=== PATIENT | male | born 1950 | race Caucasian/White ===

== ENCOUNTER → 2016-04-05 | Outpatient (CLI) | payer OTHER | END | disposition home or self-care (01) | LOC: C.LABMFLN 08:21 | PROVIDERS: ATTEND Family Medicine | DX: Z12.5 Encounter for screening for malignant neoplasm of prostate (principal) ==

== ENCOUNTER → 2016-09-10 | Outpatient (CLI) | payer OTHER ==
[2016-09-10 18:18] LABS: BLOOD UREA NITROGEN 14 mg/dl (7-18); CALCIUM 8.3 mg/dl (8.5-10.1); CARBON DIOXIDE 30 mmol/L (21-32); CHLORIDE 110 mmol/L (98-107); CREATININE 0.74 mg/dl (0.60-1.40); GLUCOSE 100 mg/dl (70-99); POTASSIUM 3.9 mmol/L (3.5-5.1); SODIUM 143 mmol/L (136-145)
== END | disposition home or self-care (01) ==
LOC: C.LABMFLN 12:05
PROVIDERS: ATTEND Internal Medicine Cardiovascular Disease
DX: R60.9 Edema, unspecified (principal)

== ENCOUNTER 2018-06-24 12:58 | Inpatient (IN) ==
[2018-06-24] MEDS ORDERED: SODIUM CHLORIDE 0.9% 1000ML 1,000 ML IV ONE (13:51)
[2018-06-24 14:00] LABS: Basophils # (auto) 0.01 K/uL (0-0.2); Basophils % (auto) 0.2 %; Eosinophils # (auto) 0.07 K/uL (0-0.5); Eosinophils % (auto) 1.1 %; Hematocrit (blood only) 38.9 % (42-52); Hemoglobin 12.8 g/dL (14.0-18.0); Immature Granulocytes # (auto) 0.01 K/uL (0.00-0.02); Immature Granulocytes % (auto) 0.2 %; Lymphocytes % (auto) 18.9 %; Mean Corpuscular Hgb Conc 32.9 g/dL (32-36); Mean Corpuscular Volume 85.9 fL (80-100); Mean Platelet Volume 10.2 fL (7.4-10.4); Monocytes # (auto) 0.41 K/uL (0.11-0.59); Monocytes % (auto) 6.4 %; Neutrophils # (auto) 4.66 K/uL (1.4-6.5); Neutrophils % (auto) 73.2 %; Platelet Count 132 K/uL (130-400); RDW Coefficient of Variation 14.9 % (11.5-14.5); Red Blood Count 4.53 M/uL (4.7-6.1); White Blood Count 6.36 K/uL (4.8-10.8)
--- NOTE | 2018-06-24 14:00 | Emergency Department Note ---
ED Visit Note I took a history and examined the patient. I coordinated management with Dr. Tyson .
--- NOTE | 2018-06-24 14:08 | XRay Report ---
XR chest 1V portable CLINICAL HISTORY: Chest Pain dyspnea COMPARISON STUDY: No previous studies for comparison. FINDINGS: The bones soft tissues and hemidiaphragms are normal. The cardiomediastinal silhouette is n ormal. The lungs are clear. The pulmonary vasculature is normal. IMPRESSION: Negative chest. The above report was generated using voice recognition software. It may contain grammatical, syntax or spelling errors. Electronically signed by: Bharat Stokes M.D. 06/24/2018 2:07 PM
[2018-06-24 14:17] LABS: Alanine Aminotransferase 53 U/L (12-78); Albumin Level 3.4 gm/dl (3.4-5.0); Aspartate Aminotransferase 42 U/L (15-37); BUN Creatinine Ratio 22.3 (10-20); Blood Urea Nitrogen 19 mg/dl (7-18); Calcium 8.5 mg/dl (8.5-10.1); Carbon Dioxide 27 mmol/L (21-32); Chloride 108 mmol/L (98-107); Est GFR (African American) 104.7; Est GFR (Non-African American) 90.4; Glucose 92 mg/dl (70-99); Potassium 4.1 mmol/L (3.5-5.1); Sodium 140 mmol/L (136-145)
[2018-06-24 14:22] LABS: Albumin Globulin Ratio 1.2 (0.9-2); Alkaline Phosphatase 82 U/L (45-117); Bilirubin,Total 0.6 mg/dl (0.2-1); Globulin 2.9 gm/dl (2.5-4.0); Phosphorus 2.8 mg/dl (2.5-4.9); Total Protein 6.3 gm/dl (6.4-8.2); Troponin I < 0.015 ng/ml (0-0.045)
--- NOTE | 2018-06-24 16:16 | History & Physical Report ---
Date of Service June 24, 2018 Assessment & Plan (1) Unstable angina: -Admit to telemetry -Hold Eliquis and start on heparin drip as per my discussion with his primary artist manager, Dr. Martins in case of need for cardiac catheterization -Continue aspirin, statin, metoprolol -Nitroglycerin as needed for pain -N.p.o. after midnight -Serial troponin -No need to repeat echocardiogram at this time as he had one done as an outpatient yesterday-will await cardiology to read the outpatient study -Daily ECG and check ECG PRN chest pain -Consult cardiology (2) KISER (dyspnea on exertion): Likely associated with his unstable angina, could also be rapid atrial fibrillation that is worsened with exertion -Follow on telemetry -Not hypoxic here Chest x-ray within normal limits (3) CAD (coronary artery disease): Status post WI with 100% occluded RCA in 01/2010 with one stent placed- went for repeat cath 2 days later during that same admission for dissection of the RCA and had 3 more stents placed at that time -Recently was discontinued from his Effient when he was started on Eliquis last week for atrial fibrillation -Continue aspirin, high intensity statin, metoprolol (4) A-fib: New in onset as of 1 week ago, rate controlled at rest here with increased dose of metoprolol to 100 mg p.o. twice daily last week -Monitor on telemetry -Holding Eliquis and starting heparin drip as above for unstable angina -Continue p.o. Toprol-XL 100 mg twice daily (5) HTN (hypertension), benign: Controlled -Continue metoprolol, losartan, Lasix (6) Chronic systolic CHF (congestive heart failure): LVEF 40-45% and imaging of the heart 2 years ago Had some lower extremity edema 1 month ago along with weight gain that resolved with an increase in his Lasix dose when seen by cardiology -Continue Lasix 40 mg daily -Continue losartan, metoprolol -Daily weights, I's and O's, low-sodium diet (7) Ischemic cardiomyopathy: As above and "CHF" (8) Hypothyroidism: TSH normal at 2.5 in 12/2017 -Continue home dose of levothyroxine 125 mcg once daily (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 Was treated with 6 months of Coumadin at that time and has had no recurrence (10) Hyperlipidemia: Continue statin (11) DVT prophylaxis: Heparin drip Disposition-admit to PCU/telemetry Full code History of Present Illness Chief Complaint: Chest pain Primary Care Provider: Chhaya Yanez MD This patient is a 68-year-old male with a history of CAD status post WI with PCI x4 to the RCA in 01/2010, ischemic cardiomyopathy and chronic systolic CHF with EF 40-45%, HTN, hypothyroidism, HL, obesity, Hodgkin's lymphoma status post XRT, history of left internal jugular brachial DVT, and recent diagnosis of atrial fibrillation 1 week ago. He presents to the ER with exertional chest pressure that is 3 out of 10 in severity, radiates to the bilateral shoulders, is associated with shortness of breath, but not with diaphoresis or nausea. The chest pressure does go away with rest. This is been going on for the last 3 days. He denies any recent weight gain or lower extremity edema since he doubled up on his diuretics a month ago and had resolution of his lower extremity edema. He was seen in the cardiology office approximately 1 week ago with dyspnea and was found to have new onset atrial fibrillation with rates in the low 100s. At that time, his Toprol-XL was doubled to 100 mg twice daily and he was started on Eliquis 5 mg p.o. twice daily. He was not having any chest pain or pressure at that time. In the ER, his initial troponin was negative, he was in atrial fibrillation that was rate controlled, and his ECG showed atrial fibrillation with a rate of 96 with age-indeterminate inferior infarct. Previous ECG in the outpatient chart from 12/2016 also shows an inferior infarct pattern. He was symptom-free at rest at the time of my evaluation. He actually had an echocardiogram performed as an outpatient yesterday, but the results were not available yet in his outpatient record. He will be admitted for unstable angina and for further work-up. Allergies Allergy/AdvReac Type Severity Reaction Status Date / Time No Known Allergies Allergy Unverified 06/24/18 14:27 Home Medications Home Medications Medication Instructions Recorded Confirmed Type acetaminophen 1,000 mg PO Q8H PRN 06/24/18 06/24/18 History apixaban [Eliquis] 5 mg PO BID 06/24/18 06/24/18 History aspirin [Aspirin Low Dose] 81 mg PO DAILY 06/24/18 06/24/18 History atorvastatin 40 mg PO HS 06/24/18 06/24/18 History furosemide 40 mg PO DAILY 06/24/18 06/24/18 History levothyroxine 125 mcg PO DAILY 06/24/18 06/24/18 History losartan 25 mg PO DAILY 06/24/18 06/24/18 History metoprolol succinate 100 mg PO BID 06/24/18 06/24/18 History multivitamin 1 tab PO DAILY 06/24/18 06/24/18 History nitroglycerin 0.4 mg SUBLINGUAL DIRECTED 06/24/18 06/24/18 History Past Med/Surg History Medical History CAD (coronary artery disease) A-fib Myocardial infarction Degenerative joint disease of right hip Chronic systolic CHF (congestive heart failure) HTN (hypertension), benign History of Hodgkin's lymphoma History of internal jugular thrombosis Hyperlipidemia Hypothyroidism Ischemic cardiomyopathy Surgical History Hx of heart artery stent History of foot surgery History of lymph node biopsy History of nasal surgery History of total right hip arthroplasty Family History Mother Diabetes Coronary heart disease Sister Mitral valve prolapse Father Coronary heart disease Social History Preferred Language: Japanese Communication Ability: Effective Visual Impairment: No Limitations Hearing Ability: Normal Associate Producer Required: No Beliefs That Will Affect Care: Amish Amish Beliefs: Moravian marital status: marital status details: Current Living Situation: Spouse and Family current occupational status: retired 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 Other Information That Helps Us Care for You: No Feels Safe at Home: Yes Safety Concerns: Feels Safe At This Time Smoking Status: Never smoker Do You Dip or Chew Tobacco: No Hx Alcohol Use: Yes Alcohol type: wine Hx Substance Use: No Review of Systems Review of Systems: All systems reviewed & are unremarkable except as noted in HPI & below Physical Exam Constitutional: WD/WN, vitals as above Eyes: PERRL, conjunctivae normal, anicteric sclerae ENMT: external ear and nose normal, oropharynx normal Neck: trachea midline, no thyromegaly Respiratory: normal respiratory effort, lungs clear to auscultation Cardiovascular: Rate/Rhythm: regular rate and + irregularly irregular Heart Sounds: no murmur Extremities: + edema (Trace pitting edema of the legs bilaterally to the mid tibia) Gastrointestinal (Abdomen): normal bowel sounds, soft, nontender, no hepatosplenomegaly Musculoskeletal: Extremities: extremities normal to inspection; no cyanosis and no clubbing Skin: no rashes, warm and dry Neurologic: moves all extremities and awake; no focal motor deficits Psychiatric: A+Ox3, euthymic affect Results & Data Vital Signs (Past 12 Hours) Vital Signs Temp Pulse Pulse Resp BP BP Pulse Ox 06/24/18 14:48 73 20 114/76 97 06/24/18 13:58 99 H 22 120/76 95 06/24/18 13:00 36.7 C 91 H 18 130/77 97 Laboratory Results 06/24/18 06/24/18 06/24/18 Range/Units 22:19 13:47 13:47 WBC 6.36 (4.8-10.8) K/uL RBC 4.53 L (4.7-6.1) M/uL Hgb 12.8 L (14.0-18.0) g/dL Hct 38.9 L (42-52) % MCV 85.9 (80-100) fL MCH 28.3 (25-34) pg MCHC 32.9 (32-36) g/dL RDW Std Deviation 47.0 H (36.4-46.3) fL RDW Coeff of Jamison 14.9 H (11.5-14.5) % Plt Count 132 (130-400) K/uL MPV 10.2 (7.4-10.4) fL Immature Gran % (Auto) 0.2 % Neut % (Auto) 73.2 % Lymph % (Auto) 18.9 % Ray % (Auto) 6.4 % Eos % (Auto) 1.1 % Baso % (Auto) 0.2 % Immature Gran # (Auto) 0.01 (0.00-0.02) K/uL Neut # (Auto) 4.66 (1.4-6.5) K/uL Lymph # (Auto) 1.20 (1.2-3.4) K/uL Ray # (Auto) 0.41 (0.11-0.59) K/uL Eos # (Auto) 0.07 (0-0.5) K/uL Baso # (Auto) 0.01 (0-0.2) K/uL Sodium 140 (136-145) mmol/L Potassium 4.1 (3.5-5.1) mmol/L Chloride 108 H (98-107) mmol/L Carbon Dioxide 27 (21-32) mmol/L Anion Gap 5.0 (3-11) BUN 19 H (7-18) mg/dl Creatinine 0.86 (0.6-1.4) mg/dl Est Cr Clr Drug Dosing 109.0 ml/min Est GFR ( Amer) 104.7 Est GFR (Non-Af Amer) 90.4 BUN/Creatinine Ratio 22.3 H (10-20) Glucose 92 (70-99) mg/dl Calcium 8.5 (8.5-10.1) mg/dl Phosphorus 2.8 (2.5-4.9) mg/dl Magnesium 2.0 (1.8-2.4) mg/dl Total Bilirubin 0.6 (0.2-1) mg/dl AST 42 H (15-37) U/L ALT 53 (12-78) U/L Alkaline Phosphatase 82 (45-117) U/L Troponin I 0.016 < 0.015 (0-0.045) ng/ml Total Protein 6.3 L (6.4-8.2) gm/dl Albumin 3.4 (3.4-5.0) gm/dl Globulin 2.9 (2.5-4.0) gm/dl Albumin/Globulin Ratio 1.2 (0.9-2) Lipase 148 (73-393) U/L Diagnostic Findings XR chest 1V portable CLINICAL HISTORY: Chest Pain dyspnea COMPARISON STUDY: No previous studies for comparison. FINDINGS: The bones soft tissues and hemidiaphragms are normal. The cardiomediastinal silhouette is normal. The lungs are clear. The pulmonary vasculature is normal. IMPRESSION: Negative chest. Code Status & VTE Plan Code Status Full code VTE Prophylaxis Plan VTE Prophylaxis will be ordered: Yes
[2018-06-24] MEDS ORDERED: ASPIRIN 81 MG CHEW PO STA (16:23)
--- NOTE | 2018-06-24 16:24 | Emergency Department Note ---
Entered by Rozina Rowland acting as a scribe for History of Present Illness General Chief complaint: Chest Pain Stated complaint: CHEST PAIN,SOB Time Seen by Provider: 06/24/18 13:27 Source: patient Mode of arrival: ambulatory Limitations: no limitations History of Present Illness Onset (ago): day(s) (last night) Location: chest (center) Radiation: other (bilateral shoulders) Pain Consistency: + intermittent Maximum Pain Intensity: 1 Exacerbated By: + other (exertion) Associated symptoms: + chest pain, + shortness of breath and + other (The patient denies leg edema, dizziness, palpitations, calf pain, travel, and trauma); no cough The patient is a 68 year old male with a history of CAD, atrial fibrillation, right hip pain, VA due to radiation, and 4 stents who presents to the ED with complaints of intermittent chest pain that onset 5 days ago. The patient presents with his . He states that he was diagnosed with atrial fibrillation 8 days ago by his cigarette and filter chief inspector. He states that he was started on Eliquis and had an echo completed. He notes that he went camping 6 days ago and was splitting w ood all weekend. The patient states that his pain started as an intermittent pain 5 days ago, but has been constant as of today. He notes that the pain is localized in the center of his chest, radiates to both of his shoulders, and is steady today. The patient complains of shortness of breath. He states that the pain is exacerbated with exertion. The patient denies cough, congestion, leg edema, dizziness, palpitations, calf pain, travel, and trauma. He notes that his mother has diabetes and his sister has mitral valve prolapse. He states that he had cold-like symptoms 2 weeks ago. Home Medications Home Medications Medication Instructions Recorded Confirmed Type acetaminophen 1,000 mg PO Q8H PRN 06/24/18 06/24/18 History apixaban [Eliquis] 5 mg PO BID 06/24/18 06/24/18 History aspirin [Aspirin Low Dose] 81 mg PO DAILY 06/24/18 06/24/18 History atorvastatin 40 mg PO HS 06/24/18 06/24/18 History furosemide 40 mg PO DAILY 06/24/18 06/24/18 History levothyroxine 125 mcg PO DAILY 06/24/18 06/24/18 History losartan 25 mg PO DAILY 06/24/18 06/24/18 History metoprolol succinate 100 mg PO BID 06/24/18 06/24/18 History multivitamin 1 tab PO DAILY 06/24/18 06/24/18 History nitroglycerin 0.4 mg SUBLINGUAL DIRECTED 06/24/18 06/24/18 History Allergies Allergy/AdvReac Type Severity Reaction Status Date / Time No Known Allergies Allergy Unverified 06/24/18 14:27 Past Med/Surg History Medical History CAD (coronary artery disease) A-fib Myocardial infarction Degenerative joint disease of right hip Surgical History Hx of heart artery stent Family History Mother Diabetes Sister Mitral valve prolapse Social History Preferred Language: Tajik Communication Ability: Effective Visual Impairment: No Limitations Hearing Ability: Normal Orchid Hand Required: No Beliefs That Will Affect Care: Tenriism Tenriism Beliefs: Anglican marital status: marital status details: Current Living Situation: Spouse and Family Other Information That Helps Us Care for You: No Feels Safe at Home: Yes Safety Concerns: Feels Safe At This Time Smoking Status: Never smoker Do You Dip or Chew Tobacco: No Hx Alcohol Use: Yes Alcohol type: wine Hx Substance Use: No Review of Systems See HPI for pertinent positives & negatives. and A total of 10 systems reviewed and were otherwise negative Physical Exam Vital Signs Vital Signs - 24 hr 06/24/18 13:00 06/24/18 13:58 06/24/18 14:48 Temperature 36.7 C Temperature Source Oral Sepsis Recent Fever Within 48 Hours No Sepsis Action Taken by Nursing No Action Required Pulse Rate 91 H Pulse Rate [Apical] 99 H 73 Pulse Rhythm Regular Pulse Strength Normal Respiratory Rate 18 22 20 Respiratory Effort / Characteristics Non-Labored Respiratory Depth Normal Respiratory Pattern Regular Blood Pressure 130/77 Blood Pressure [Right Arm] 120/76 114/76 Blood Pressure Mean 94 Blood Pressure Mean [Right Arm] 90 88 Blood Pressure Position Sitting Blood Pressure Position [Right Arm] Pulse Oximetry 97 95 97 Oxygen Delivery Method Room Air Room Air Room Air 06/24/18 15:00 06/24/18 16:00 Temperature Temperature Source Sepsis Recent Fever Within 48 Hours Sepsis Action Taken by Nursing Pulse Rate Pulse Rate [Apical] 101 H 89 Pulse Rhythm Pulse Strength Respiratory Rate 18 18 Respiratory Effort / Characteristics Non-Labored Spontaneous Non-Labored Spontaneous Respiratory Depth Normal Normal Respiratory Pattern Regular Regular Blood Pressure Blood Pressure [Right Arm] 146/96 H 158/96 H Blood Pressure Mean Blood Pressure Mean [Right Arm] 112 116 Blood Pressure Position Blood Pressure Position [Right Arm] Sitting Sitting Pulse Oximetry 98 99 Oxygen Delivery Method Room Air Room Air GENERAL: Awake, alert, fatigued-appearing, in no distress HENT: Normocephalic, atraumatic. Oropharynx with dry mucous membranes and otherwise unremarkable. EYES: Normal conjunctiva. Sclera non-icteric. NECK: Supple. No nuchal rigidity. FROM. No JVD. RESPIRATORY: Normal exam. CARDIAC: Regular rate, irregular rhythm. Extremities warm and well perfused. Pulses equal. ABDOMEN: Soft, non-distended. No tenderness to palpation. No rebound or guar ding. No masses. RECTAL: Deferred. MUSCULOSKELETAL: Chest examination reveals no tenderness. The back is symmetrical on inspection without obvious abnormality. There is no CVA tenderness to palpation. No joint edema. LOWER EXTREMITIES: Calves are equal size bilaterally and non-tender. No edema. No discoloration. NEURO: Normal sensorium. No sensory or motor deficits noted. SKIN: No rash or jaundice noted. Course 1330: Past medical records reviewed. The patient was evaluated in room A09B. A complete history and physical examination was performed. 1814: I reviewed the patient's case with Dr. Jeremie Ramos - [facility]. She will evaluate the patient for further management. Consultations Consultation #1: 1815: I reviewed the patient's case with Dr. Jeremie Ramos - [facility]. She will evaluate the patient for further management. Administered Medications Atorvastatin Calcium (Lipitor) 40 mg PO HS [facility] Stop: 07/24/18 20:59 Last Admin: 06/24/18 19:51 Dose: 40 mg Documented by: [id number] Heparin Sodium/Dextrose (Heparin Sodium/Dextrose) 25,000 units in 500 mls @ 33 mls/hr IV .[id number] LASHAUN; Protocol Stop: 07/24/18 18:14 Last Admin: 06/24/18 18:27 Dose: 1,650 units/hr, 33 mls/hr Documented by: [id number] Cosigned by: [id number] Metoprolol Succinate (Toprol Xl) 100 mg PO BID LASHAUN Stop: 07/24/18 20:59 Last Admin: 06/24/18 19:51 Dose: 100 mg Documented by: [id number] Discontinued Medications Aspirin (Aspirin Chew) 162 mg PO NOW STA Stop: 06/24/18 16:24 Last Admin: 06/24/18 16:47 Dose: 162 mg Documented by: [id number] Sodium Chloride (Nss 1000ml) 1,000 mls @ 999 mls/hr IV .[id number] ONE Stop: 06/24/18 14:51 Last Infusion: 06/24/18 15:29 Dose: 0 mls/hr Documented by: [id number] Admin: 06/24/18 13:55 Dose: 999 mls/hr Documented by: [id number] Medical Decision Making Differential Diagnosis Differential diagnoses: Acute coronary syndrome, myocardial infarction, pericarditis, pulmonary embolus, aortic dissection, pneumonia, pneumothorax, musculoskeletal, shingles, esophageal. Medical Records Attestation: I reviewed the patient's medical records. Home Medications Current Medication List: was personally reviewed by me Laboratory Data Attestation: I reviewed the patient's lab results. Result diagrams: 06/24/18 13:47 06/24/18 13:47 Lab Results 06/24/18 06/24/18 Range/Units 13:47 13:47 WBC 6.36 (4.8-10.8) K/uL RBC 4.53 L (4.7-6.1) M/uL Hgb 12.8 L (14.0-18.0) g/dL Hct 38.9 L (42-52) % MCV 85.9 (80-100) fL MCH 28.3 (25-34) pg MCHC 32.9 (32-36) g/dL RDW Std Deviation 47.0 H (36.4-46.3) fL RDW Coeff of Jamison 14.9 H (11.5-14.5) % Plt Count 132 (130-400) K/uL MPV 10.2 (7.4-10.4) fL Immature Gran % (Auto) 0.2 % Neut % (Auto) 73.2 % Lymph % (Auto) 18.9 % [place] % (Auto) 6.4 % Eos % (Auto) 1.1 % Baso % (Auto) 0.2 % Immature Gran # (Auto) 0.01 (0.00-0.02) K/uL Neut # (Auto) 4.66 (1.4-6.5) K/uL Lymph # (Auto) 1.20 (1.2-3.4) K/uL [place] # (Auto) 0.41 (0.11-0.59) K/uL Eos # (Auto) 0.07 (0-0.5) K/uL Baso # (Auto) 0.01 (0-0.2) K/uL Sodium 140 (136-145) mmol/L Potassium 4.1 (3.5-5.1) mmol/L Chloride 108 H (98-107) mmol/L Carbon Dioxide 27 (21-32) mmol/L Anion Gap 5.0 (3-11) BUN 19 H (7-18) mg/dl Creatinine 0.86 (0.6-1.4) mg/dl Est Cr Clr Drug Dosing 109.0 ml/min Est GFR ( Amer) 104.7 Est GFR (Non-Af Amer) 90.4 BUN/Creatinine Ratio 22.3 H (10-20) Glucose 92 (70-99) mg/dl Calcium 8.5 (8.5-10.1) mg/dl Phosphorus 2.8 (2.5-4.9) mg/dl Magnesium 2.0 (1.8-2.4) mg/dl Total Bilirubin 0.6 (0.2-1) mg/dl AST 42 H (15-37) U/L ALT 53 (12-78) U/L Alkaline Phosphatase 82 (45-117) U/L Troponin I < 0.015 (0-0.045) ng/ml Total Protein 6.3 L (6.4-8.2) gm/dl Albumin 3.4 (3.4-5.0) gm/dl Globulin 2.9 (2.5-4.0) gm/dl Albumin/Globulin Ratio 1.2 (0.9-2) Lipase 148 (73-393) U/L Imaging Data Radiologist's Impression: Radiology results as stated below per my review and the radiologist's interpretation: XR chest 1V portable CLINICAL HISTORY: Chest Pain dyspnea COMPARISON STUDY: No previous studies for comparison. FINDINGS: The bones soft tissues and hemidiaphragms are normal. The cardiomediastinal silhouette is normal. The lungs are clear. The pulmonary vasculature is normal. IMPRESSION: Negative chest. The above report was generated using voice recognition software. It may contain grammatical, syntax or spelling errors. Electronically signed by: Bharat Stokes M.D. 06/24/2018 2:07 PM Dictated: 06/24/18 1406 Transcribed: 06/24/18 1406 ECG Data Attestation: I personally reviewed and interpreted this ECG as follows: Indication: chest pain Rate (beats per minute): 96 Rhythm: atrial fibrillation Findings: + other (normal axis); no acute ischemic change Blood Pressure Blood Pressure Findings: Normal blood pressure MDM Narrative The patient is a pleasant 68-year-old gentleman with a past medical history of CAD related to remote lymphoma and radiation treatment who presents emergency department with dyspnea on exertion that is been persistent over the past week and a half the setting of recently being diagnosed with atrial fibrillation currently on Eliquis per [place] [facility]. On arrival the patient is no acute distress, afebrile stable vital signs. EKG unremarkable without evidence of acute ischemia. CXR negative. WBC and platelets within normal limits. H/H 12.8/30.9 approximate to prior values. Chemistry without acidosis. Troponin negative. While the patient's exertional symptoms could be explained the patient's atrial fibrillation given his moderate risk heart score of 5, it reasonable to admit the patient for further cardiac evaluation. Resident, Dr. Blackwood, discussed the case with Dr. Chao, [facility] hospitalist, who will evaluate the patient for ad mission. This patient was managed with the assistance of resident, Dr. Blackwood, I discussed the case with the resident, examined the patient, and confirm the findings and plan as documented in this note. Impression & Plan KISER (dyspnea on exertion) Discharge Plan Visit Data *Final* Discharge Date/Time: 06/24/18 16:58 Chief Complaint: Chest Pain Stated Complaint: CHEST PAIN,SOB ED Provider: Dontae Tyson ED Midlevel Provider: Rakesh Blackwood Discharge Problem: KISER (dyspnea on exertion) Patient Disposition: Admitted As Inpatient Discharge Instructions Interventions: ED Discharge Assessment Last Done: 06/24/18 16:58 The scribe's documentation has been prepared under my direction and personally reviewed by me in its entirety. I confirm that the note above accurately reflects all work, treatment, procedures, and medical decision making performed by me.
[2018-06-24] MEDS ORDERED: ACETAMINOPHEN 500 MG TAB PO PRN (17:24)
[2018-06-24] MEDS ORDERED: NITROGLYCERIN SL 0.4 MG/TAB TAB SL PRN (17:24)
[2018-06-24] MEDS ORDERED: POLYETHYLENE (MIRALAX) 17 GM PACK PO PRN (17:24)
[2018-06-24] MEDS ORDERED: MoRPHine SULFATE 2 MG/ML CARP IV PRN (17:24)
[2018-06-24] MEDS ORDERED: Heparin IV Standard *NO* Bolus IV SCH (17:45)
[2018-06-24] MEDS: HEPARIN SODIUM/DEXTROSE 25,000 UNITS/500 ML BAG IV SCH (18:27)
[2018-06-24] MEDS: METOPROLOL SUCC 50MG EXT REL TAB PO SCH (19:51)
[2018-06-24] MEDS: ATORVASTATIN 40 MG TAB PO SCH (19:51)
[2018-06-25 01:06] LABS: Partial Thromboplastin Ratio 2.9
[2018-06-25 01:11] LABS: Partial Thromboplastin Time 77.4 Seconds (21.0-31.0)
[2018-06-25 04:26] LABS: Basophils # (auto) 0.01 K/uL (0-0.2); Basophils % (auto) 0.2 %; Eosinophils # (auto) 0.13 K/uL (0-0.5); Eosinophils % (auto) 2.2 %; Hematocrit (blood only) 36.7 % (42-52); Hemoglobin 11.8 g/dL (14.0-18.0); Immature Granulocytes # (auto) 0.01 K/uL (0.00-0.02); Immature Granulocytes % (auto) 0.2 %; Lymphocytes # (auto) 1.02 K/uL (1.2-3.4); Lymphocytes % (auto) 17.2 %; Mean Corpuscular Hgb Conc 32.2 g/dL (32-36); Mean Corpuscular Volume 86.8 fL (80-100); Mean Platelet Volume 10.7 fL (7.4-10.4); Monocytes # (auto) 0.59 K/uL (0.11-0.59); Neutrophils # (auto) 4.16 K/uL (1.4-6.5); Neutrophils % (auto) 70.2 %; Platelet Count 123 K/uL (130-400); RDW Coefficient of Variation 15.1 % (11.5-14.5); RDW Standard Deviation 48.4 fL (36.4-46.3); Red Blood Count 4.23 M/uL (4.7-6.1); White Blood Count 5.92 K/uL (4.8-10.8)
[2018-06-25 04:43] LABS: BUN Creatinine Ratio 18.2 (10-20); Calcium 8.1 mg/dl (8.5-10.1); Creatinine Clr Calc Pharmacy 107.6 ml/min; Est GFR (African American) 104.2; Est GFR (Non-African American) 89.9; Potassium 4.1 mmol/L (3.5-5.1)
[2018-06-25 04:48] LABS: Troponin I 0.018 ng/ml (0-0.045)
[2018-06-25] MEDS: LEVOTHYROXINE SODIUM 125 MCG TABLET PO SCH (06:14)
--- NOTE | 2018-06-25 07:40 | Hospitalist Progress Note ---
Date of Service June 25, 2018 Assessment & Plan (1) Unstable angina: - admmitting physician after discussion with cardiology was instructed to hold Eliquis and start on heparin drip -Continue aspirin, statin, metoprolol -Nitroglycerin as needed for pain Troponin 0.015->0.016-> 0.018 -Per cardiology No need to repeat echocardiogram at this time as he had one done as an outpatient yesterday-will await cardiology to read the outpatient study given concerns for symptoms will have off eliquis for 48 hours before heart cath (2) KISER (dyspnea on exertion): Likely associated with his unstable angina, could also be rapid atrial fibrillation that is worsened with exertion CXR with out signs of fluid overload symptoms resolved at rest (3) CAD (coronary artery disease): Status post MT with 100% occluded RCA in 01/2010 with one stent placed- went for repeat cath 2 days later during that same admission for dissection of the RCA and had 3 more stents placed at that time -Recently was discontinued from his Effient when he was started on Eliquis last week for atrial fibrillation -Continue aspirin, high intensity statin, metoprolol (4) A-fib: New in onset as of 1 week ago, rate controlled at rest here with increased dose of metoprolol to 100 mg p.o. twice daily last week -Monitor on telemetry -Holding Eliquis and starting heparin drip as above for unstable angina -Continue p.o. Toprol-XL 100 mg twice daily (5) HTN (hypertension), benign: Controlled -Continue metoprolol, losartan, Lasix (6) Chronic systolic CHF (congestive heart failure): HFrEF LVEF 40-45% and imaging of the heart 2 years ago Had some lower extremity edema 1 month ago along with weight gain that resolved with an increase in his Lasix dose when seen by cardiology -Continue Lasix 40 mg daily -Continue losartan, metoprolol heart failure clinic engagement (7) Ischemic cardiomyopathy: As above and "CHF" (8) Hypothyroidism: TSH normal at 2.5 in 12/2017 -Continue home dose of levothyroxine 125 mcg once daily (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 Was treated with 6 months of Coumadin at that time and has had no recurrence (10) Hyperlipidemia: Continue statin (11) DVT prophylaxis: Heparin drip Disposition-admit to PCU/telemetry Full code Subjective this pt is having no further chest pain or shortness of breath, or chest discomfort. He is understanding plan by cardiology for diagnositic heart cath tentavily for 06/26 Results & Data Vital Signs (Past 12 Hours) Vital Signs Temp Pulse Resp BP Pulse Ox 06/25/18 06:52 36.6 C 77 19 108/67 95 06/25/18 03:31 36.5 C 87 16 122/70 97 06/24/18 22:59 36.4 C L 74 16 113/72 95
[2018-06-25 08:06] LABS: Partial Thromboplastin Ratio 3.4
[2018-06-25 08:10] LABS: Partial Thromboplastin Time 92.8 Seconds (21.0-31.0)
[2018-06-25] MEDS: ASPIRIN 81 MG ECTAB PO SCH (08:49)
[2018-06-25] MEDS: LOSARTAN POTASSIUM 25 MG TAB PO SCH (08:49)
[2018-06-25] MEDS: FUROSEMIDE 40 MG TAB PO SCH (08:50)
[2018-06-25] MEDS: MULTIVITAMIN TAB PO SCH (08:50)
[2018-06-25] MEDS: METOPROLOL SUCC 50MG EXT REL TAB PO SCH ×2 (08:50→20:51)
[2018-06-25] MEDS: HEPARIN SODIUM/DEXTROSE 25,000 UNITS/500 ML BAG IV SCH (08:52)
--- NOTE | 2018-06-25 10:43 | Cardiology Consultation ---
Date of Consultation June 25, 2018 Assessment & Plan (1) Unstable angina: Symptoms are concerning for unstable angina and reminded him of the angina that he felt during PCI with balloon expansion in his coronary artery in the past. Recommend coronary angiography. Risks and benefits were discussed with him. He was made aware that CT surgery is not available at this facility. He was agreeable to undergo the procedure. Given the fact that he had Eliquis yesterday, will wait tomorrow unless he has worsening symptoms that would make the procedure more urgent. Continue beta-rony. Start isosorbide mononitrate 30 mg daily. Continue aspirin. Continue heparin drip and high-intensity statin therapy. (2) CAD (coronary artery disease): Has had PCI x4 to RCA in 2009. He had [id number] nonobstructive CAD in the circumflex and LAD. Continue medical therapy as noted above. Coronary angiography put likely tomorrow or sooner if becomes urgent. (3) A-fib: Eliquis has been held in anticipation of cardiac catheterization. Continue heparin drip for stroke risk reduction. Continue beta-rony for rate control. His rate is reasonably controlled, but may consider adjusting rate control strategy further. If he has no significant CAD on cardiac catheterization, would consider rhythm control as perhaps atrial fibrillation is playing a role in his symptoms, specifically the dyspnea. For now, continue rate control strategy. (4) KISER (dyspnea on exertion): Could be due to ischemic heart disease, atrial fibrillation, or heart failure. He does not appear to be significantly hypervolemic however. If he is not found to have significant ischemic heart disease during coronary angiography, would then consider further rate control medications or perhaps cardioversion in the future. (5) Ischemic cardiomyopathy: Moderately reduced LV systolic function. Continue metoprolol succinate. Continue ARB. Can consider Entresto as an outpatient. He does not appear to be significantly hypervolemic currently. (6) Chronic systolic (congestive) heart failure: He does not appear to be significantly hypervolemic. Continue home dose of diuretic. Low-sodium diet. Strict I&Os. Daily weights. Disposition: Cardiology will continue to follow. Highly complex medical issues. Patient care discussed with Dr. Perez the primary hospitalist service. History of Present Illness Reason for Consultation: Unstable angina Requesting Physician: Dr. Chao Attending Physician: Karan Perez MD History of Present Illness Mr. Brennan sparrow is a very pleasant 68-year-old gentleman with history significant for CAD status post PCI x4 to the RCA, ischemic cardiomyopathy, chronic systolic CHF, hypertension, atrial fibrillation, and dyslipidemia. He also has a history of Hodgkin's lymphoma status post XRT in 2000. He underwent PCI in January of 2010 including 4 stents in his RCA. There was extensive RCA dissection following initial PCI and therefore 3 more stents were placed. He had [id number] nonobstructive disease otherwise in his circumflex and LAD. He was recently diagnosed with atrial fibrillation and was started on Eliquis with increased beta-rony for rate control strategy. He was last seen in the office on 06/16/2018 at which point Eliquis was initiated and metoprolol succinate was increased to 100 mg twice daily. Effient was discontinued. He has tolerated These changes well. Unfortunately, 3-4 days ago he started developing substernal chest heaviness/pressure. It is more predictable with exertion but also occurs at rest intermittently, including early this morning at approximately 3:44 a.m.. Symptoms resolve within 10-15 minutes. He has not tried nitroglycerin. There is associated shortness of breath. At times the chest discomfort radiates to bilateral shoulders. The frequency of his symptoms have increased over the past few days. He is currently chest pain-free. He otherwise has been having dyspnea with exertion, which predates atrial fibrillation. He denies shortness of breath at rest unless he is having chest discomfort. He denies syncope, near-syncope, palpitations, or worsening edema. He has chronic lower extremity swelling. He denies melena, hematochezia, hematuria, or other bleeding. When asked about prior angina, the symptoms that he has been experiencing are a bit different than his myocardial infarction but the chest heaviness/pressure reminds him of when he had the balloon inflated within his RCA in 2009. Review of systems: As above. Review of systems otherwise negative/unremarkable. Family History: Mother had diabetes. Sister (Huyen Jenkins) had mitral valve prolapse, requiring MV repair. Father had CAD status post CABG at unknown age. Her parents were . Social History: Denies tobacco or drug abuse. Rare alcohol. and lives with his . He has a stepdaughter. No grand children. 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 He is alone in his hospital room. Allergies Allergy/AdvReac Type Severity Reaction Status Date / Time No Known Allergies Allergy Unverified 06/24/18 14:27 Home Medications Home Medications Medication Instructions Recorded Confirmed Type acetaminophen 1,000 mg PO Q8H PRN 06/24/18 06/24/18 History apixaban [Eliquis] 5 mg PO BID 06/24/18 06/24/18 History aspirin [Aspirin Low Dose] 81 mg PO DAILY 06/24/18 06/24/18 History atorvastatin 40 mg PO HS 06/24/18 06/24/18 History furosemide 40 mg PO DAILY 06/24/18 06/24/18 History levothyroxine 125 mcg PO DAILY 06/24/18 06/24/18 History losartan 25 mg PO DAILY 06/24/18 06/24/18 History metoprolol succinate 100 mg PO BID 06/24/18 06/24/18 History multivitamin 1 tab PO DAILY 06/24/18 06/24/18 History nitroglycerin 0.4 mg SUBLINGUAL DIRECTED 06/24/18 06/24/18 History Patient History Medical History CAD (coronary artery disease) A-fib Myocardial infarction Degenerative joint disease of right hip Chronic systolic CHF (congestive heart failure) HTN (hypertension), benign History of Hodgkin's lymphoma History of internal jugular thrombosis Hyperlipidemia Hypothyroidism Ischemic cardiomyopathy Surgical History Hx of heart artery stent History of foot surgery History of lymph node biopsy History of nasal surgery History of total right hip arthroplasty Family History Mother Diabetes Coronary heart disease Sister Mitral valve prolapse Father Coronary heart disease Social History Preferred Language: Slovenian Communication Ability: Effective Visual Impairment: No Limitations Hearing Ability: Normal Order Runner Required: No Beliefs That Will Affect Care: Confucianist Confucianist Beliefs: Latter Day marital status: marital status details: Current Living Situation: Spouse and Family current occupational status: retired current 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 Alert and oriented. HEENT: Anicteric sclera. Neck: No significant JVD. No bruits. Normal carotid upstrokes bilaterally. Cardiac: PMI was nondisplaced. No ventricular heave. Irregularly irregular. Normal S1-S2. No murmurs, rubs, or gallops. Pulmonary: Clear to auscultation bilaterally without wheezes, rales, or rhonchi. Abdomen: Soft, nontender, nondistended, with normoactive bowel sounds. No bruits noted. Extremities: 1+ right radial pulse. 2+ left radial pulse. 2+ posterior tibialis pulses bilaterally. Trace bilateral lower extremity edema. No cyanosis. Psychiatric: Affect appears appropriate. Results & Data Vital Signs (Past 12 Hours) Vital Signs Temp Pulse Resp BP Pulse Ox 06/25/18 06:52 36.6 C 77 19 108/67 95 06/25/18 03:31 36.5 C 87 16 122/70 97 06/24/18 22:59 36.4 C L 74 16 113/72 95 Intake & Output 06/23/18 06/24/18 06/25/18 06/26/18 06:59 06:59 06:59 06:59 Intake Total 1524.95 / 1524.95 220.134 / 220.134 Output Total 700 / 700 Balance 824.95 / 824.95 220.134 / 220.134 Weight 114.8 kg Laboratory Results Laboratory Results - last 24 hr 06/24/18 06/24/18 06/24/18 13:47 13:47 22:19 WBC 6.36 RBC 4.53 L Hgb 12.8 L Hct 38.9 L MCV 85.9 MCH 28.3 MCHC 32.9 RDW Std Deviation 47.0 H RDW Coeff of Jamison 14.9 H Plt Count 132 MPV 10.2 Immature Gran % (Auto) 0.2 Neut % (Auto) 73.2 Lymph % (Auto) 18.9 Horry % (Auto) 6.4 Eos % (Auto) 1.1 Baso % (Auto) 0.2 Immature Gran # (Auto) 0.01 Neut # (Auto) 4.66 Lymph # (Auto) 1.20 [place] # (Auto) 0.41 Eos # (Auto) 0.07 Baso # (Auto) 0.01 APTT PTT Ratio Sodium 140 Potassium 4.1 Chloride 108 H Carbon Dioxide 27 Anion Gap 5.0 BUN 19 H Creatinine 0.86 Est Cr Clr Drug Dosing 109.0 Est GFR ( Amer) 104.7 Est GFR (Non-Af Amer) 90.4 BUN/Creatinine Ratio 22.3 H Glucose 92 Calcium 8.5 Phosphorus 2.8 Magnesium 2.0 Total Bilirubin 0.6 AST 42 H ALT 53 Alkaline Phosphatase 82 Troponin I < 0.015 0.016 Total Protein 6.3 L Albumin 3.4 Globulin 2.9 Albumin/Globulin Ratio 1.2 Lipase 148 06/25/18 06/25/18 06/25/18 00:35 04:18 04:18 WBC 5.92 RBC 4.23 L Hgb 11.8 L Hct 36.7 L MCV 86.8 MCH 27.9 MCHC 32.2 RDW Std Deviation 48.4 H RDW Coeff of Jamison 15.1 H Plt Count 123 L MPV 10.7 H Immature Gran % (Auto) 0.2 Neut % (Auto) 70.2 Lymph % (Auto) 17.2 [place] % (Auto) 10.0 Eos % (Auto) 2.2 Baso % (Auto) 0.2 Immature Gran # (Auto) 0.01 Neut # (Auto) 4.16 Lymph # (Auto) 1.02 L [place] # (Auto) 0.59 Eos # (Auto) 0.13 Baso # (Auto) 0.01 APTT 77.4 H* PTT Ratio 2.9 Sodium 140 Potassium 4.1 Chloride 107 Carbon Dioxide 31 Anion Gap 2.0 L BUN 16 Creatinine 0.87 Est Cr Clr Drug Dosing 107.6 Est GFR ( Amer) 104.2 Est GFR (Non-Af Amer) 89.9 BUN/Creatinine Ratio 18.2 Glucose 102 H Calcium 8.1 L Phosphorus Magnesium Total Bilirubin AST ALT Alkaline Phosphatase Troponin I 0.018 Total Protein Albumin Globulin Albumin/Globulin Ratio Lipase 06/25/18 07:21 WBC RBC Hgb Hct MCV MCH MCHC RDW Std Deviation RDW Coeff of Jamison Plt Count MPV Immature Gran % (Auto) Neut % (Auto) Lymph % (Auto) H[place] % (Auto) Eos % (Auto) Baso % (Auto) Immature Gran # (Auto) Neut # (Auto) Lymph # (Auto) [place] # (Auto) Eos # (Auto) Baso # (Auto) APTT 92.8 H* PTT Ratio 3.4 Sodium Potassium Chloride Carbon Dioxide Anion Gap BUN Creatinine Est Cr Clr Drug Dosing Est GFR ( Amer) Est GFR (Non-Af Amer) BUN/Creatinine Ratio Glucose Calcium Phosphorus Magnesium Total Bilirubin AST ALT Alkaline Phosphatase Troponin I Total Protein Albumin Globulin Albumin/Globulin Ratio Lipase Diagnostic Findings ECGs personally reviewed: ECG 06/24/2018: AFib 96 bpm. Inferior infarct. Nonspecific T-wave abnormality. ECG 06/25/2018: AFib 91 bpm. Nonspecific T-wave abnormality. Inferior infarct. Telemetry personally reviewed: Atrial fibrillation. Echo 06/23/2018 done as an outpatient: Images personally reviewed. Preliminary review moderately reduced LV systolic function with an EF of 35-40%. Akinesis of the inferolateral wall. Hypokinesis of the inferior wall. Mild mitral regurgitation. Chest x-ray 06/24/2018: No acute findings Per Radiology. Medications Administered Current Inpatient Medications Acetaminophen (Tylenol) 1,000 mg PO Q8H PRN PRN Reason: Pain Stop: 07/24/18 17:23 Aspirin (Ecotrin Ectab) 81 mg PO DAILY [facility]1983 Stop: 07/25/18 08:59 Last Admin: 06/25/18 08:49 Dose: 81 mg Documented by: Atorvastatin Calcium (Lipitor) 40 mg PO HS [facility]1983 Stop: 07/24/18 20:59 Last Admin: 06/24/18 19:51 Dose: 40 mg Documented by: Furosemide (Lasix) 40 mg PO DAILY [facility] Stop: 07/25/18 08:59 Last Admin: 06/25/18 08:50 Dose: 40 mg Documented by: Heparin Sodium/Dextrose (Heparin Sodium/Dextrose) 25,000 units in 500 mls @ 29 mls/hr IV .[id number] [facility], 1928–1983; Protocol Stop: 07/24/18 18:14 Last Admin: 06/25/18 08:52 Dose: 1,250 units/hr, 25 mls/hr Documented by: Levothyroxine Sodium (Synthroid) 125 mcg PO DAILYBB [facility], [facility]–1983 Stop: 07/25/18 06:29 Last Admin: 06/25/18 06:14 Dose: 125 mcg Documented by: Losartan Potassium (Cozaar) 25 mg PO DAILY [facility]1983 Stop: 07/25/18 08:59 Last Admin: 06/25/18 08:49 Dose: 25 mg Documented by: Metoprolol Succinate (Toprol Xl) 100 mg PO BID [facility] Stop: 07/24/18 20:59 Last Admin: 06/25/18 08:50 Dose: 100 mg Documented by: Morphine Sulfate (Morphine Sulfate) 2 mg IV Q30M PRN PRN Reason: Chest Pain Stop: 07/08/18 17:23 Multivitamins (Multivitamin Tab) 1 tab PO DAILY [facility] Stop: 07/25/18 08:59 Last Admin: 06/25/18 08:50 Dose: 1 tab Documented by: Nitroglycerin (Nitrostat) 0.4 mg SL UD PRN PRN Reason: Chest Pain Stop: 07/24/18 17:23 Polyethylene Glycol (Miralax Powder Packet) 17 gm PO DAILY PRN PRN Reason: Constipation Stop: 07/24/18 17:23
[2018-06-25] MEDS: ISOSORBIDE MONO EXTENDED REL 30 MG TABCR PO SCH (12:06)
[2018-06-25 15:21] LABS: Partial Thromboplastin Ratio 2.3
[2018-06-25 15:32] LABS: Partial Thromboplastin Time 61.5 Seconds (21.0-31.0)
[2018-06-25] MEDS: ATORVASTATIN 40 MG TAB PO SCH (20:53)
[2018-06-26] MEDS: HEPARIN SODIUM/DEXTROSE 25,000 UNITS/500 ML BAG IV SCH (03:24)
[2018-06-26 06:03] LABS: Partial Thromboplastin Ratio 2.6
[2018-06-26 06:06] LABS: Partial Thromboplastin Time 71.2 Seconds (21.0-31.0)
[2018-06-26] MEDS: LEVOTHYROXINE SODIUM 125 MCG TABLET PO SCH (06:13)
[2018-06-26] MEDS ORDERED: MIDAZOLAM HCL 1 MG/ML 2ML VIAL ONE ×2 (07:32→08:39)
[2018-06-26] MEDS ORDERED: fentaNYL citrate 100 MCG/2 ML VIAL ONE (07:32)
[2018-06-26] MEDS ORDERED: HEPARIN (PORCINE) 1000 UNIT/ML 10 ML (CATH LAB USE ONLY) ONE (07:32)
[2018-06-26] MEDS ORDERED: NiCARDipine HCL INJ 2.5 MG/ML 10 ML AMP ONE (07:33)
[2018-06-26] MEDS ORDERED: NITROGLYCERIN/D5W 100MCG/ML 20ML SYR ONE (07:33)
[2018-06-26] MEDS ORDERED: ASPIRIN 81 MG CHEW ONE (07:58)
--- NOTE | 2018-06-26 08:04 | Pre Anesthesia Assessment ---
Date of Service June 26, 2018 Pre Sedation Assessment Vital Signs Temp Pulse Resp BP Pulse Ox 06/26/18 06:52 36.7 C 80 16 96/59 L 98 06/26/18 03:20 36.5 C 80 16 104/78 95 06/25/18 22:59 36.5 C 85 18 109/61 96 06/25/18 20:53 111 H 114/75 06/25/18 19:23 36.5 C 80 18 100/66 95 06/25/18 16:00 36.4 C L 77 17 112/75 95 06/25/18 10:41 36.9 C 95 H 17 125/73 94 Cardiovascular Additional Comments: irregularly irregular Respiratory normal respiratory effort, lungs clear to auscultation Pre-Sedation Airway Assessment Smoking Status: Never smoker Short, Thick Neck: No Thyromental Distance: > or= 3.5 Finger Breadths Oral Cavity: + WNL Mallampati Class: II ASA: ASA3 NPO Status Date of Last Intake of Fluids: 06/25/18 Time of Last Intake of Fluids: 19:00 Date of Last Intake of Solid Food: 06/25/18 Time of Last Intake of Solid Foods: 19:00 Procedure Planning Contraindications for Sedation: none Current Medications Reviewed: Yes Notes The planned sedation has been discussed with the patient. Informed Consent was obtained. I have identified the patient, determined the appropriateness of sedation and have assessed the patient immediately prior to the procedure. All medicine(s) and interventions are by my order.
--- NOTE | 2018-06-26 09:12 | Cardiac Catheterization ---
Cardiac Cath Procedure Full Procedure Date June 26, 2018 Pre-Procedure Diagnosis Pre-Procedure Diagnosis: Angina and CAD AUC Score AUC Score: 7 Post-Procedure Diagnosis Post-Procedure Diagnosis: Severe CAD and Normal Intracardiac Pressures Procedure(s) Performed Procedure(s) Performed: Coronary Angiography and Left Heart Cath Editor Greeting Card Jimmy Martins MD Synthetic Filament Spinner(s) Katie Onofre Estimated Blood Loss Estimated Blood Loss: < 25 ml Medication(s) Medication(s): Fentanyl, Heparin, Lidocaine 1%, Nicardipine and Versed Summary of Findings Coronary angiography: 1. Left main coronary artery: The LMCA is medium caliber and appears smaller than proximal LAD. The waveform was ventricularized with the catheter was engaged within the LMCA, as the catheter was positioned along the vascular wall. No focal stenosis visualized. 2. Left anterior descending: The LAD is a large caliber vessel that extends near the apex. Mid LAD 30-40% at bifurcation of D2. There is a large high D1 without significant CAD. KARY 3 flow. 3. Circumflex: Large caliber vessel. Ostial circumflex 50%. Medium caliber OM1 without significant CAD. Large OM2 mid 30%. 4. Right coronary artery: The RCA is large and dominant. RCA stents extending proximally to distal vessel. Proximal RCA 40%, proximal to stent margin. There is diffuse 20-30% in stent restenosis throughout the stented RCA territory. Proximal RCA stent focal 40% stenosis. Mid RCA stent 50-60% in stent restenosis. Distal RCA 30-40% followed by 50% at the bifurcation of PDA and PL (distal to distal RCA stent margin). Large PDA with ostial 70-80% stenosis with KARY [address] branches. Left heart catheterization: 1. Left ventriculography was not performed. 2. Borderline LVEDP; 15mmHg. 3. No significant aortic stenosis. Sedation start time: 8:09 a.m. Sedation end time: 9:31 a.m. Catheters: 1. LMCA was selectively engaged with 6 Setswana JL 3.5 diagnostic catheter. 2. Due to vaso spasm within the right radial artery, a 5 Setswana JR4 diagnostic catheter was used to selectively engage the RCA, without difficulty. Impression: 1. Severe CAD involving ostial PDA. 2. Mild and moderate in stent restenosis involving proximal, mid, distal RCA stents, hopi RCA, circumflex system, and LAD. 3. Moderate caliber LMCA without obvious focal stenosis (proximal LAD and circumflex appear larger in caliber). 4. Borderline LVEDP. 5. No aortic stenosis. Plan: 1. Images reviewed with Dr. Leal of interventional Cardiology. 2. Consideration for IVUS of LMCA and PCI of PDA. Hemodynamics Rest Ao:: 102/48 Final Ao: 95/53 LV: 114/12/15 Recommendations Recommendations: PCI without planned CABG Specimens Specimens: None Radiation Exposure (mGy) 1241 mGy. Fluoro time 3.3 min. 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 Cardiac Status Clinical evaluation leading to the procedure CAD Presenation: Unstable angina Anginal Classification: CCS IV Heart Failure: No Cardiogenic Shock within 24 Hours: No Cardiac Arrest within 24 Hours: No Imaging Studies Past 6 Months: Yes Stress Studies Past 6 Months: No Standard Exercise Test: No Stress Echocardiogram: No Stress Testing w/SPECT MPI: No Cardiac CTA: No Coronary Anatomy Dominant: Right Left Main (% Stenosis): Normal (Moderate caliber without focal stenosis (LAD and Cx appear larger in diameter proximally)) LAD (% Stenosis): Mid (30-40%) D1 (% Stenosis): Normal D2 (% Stenosis): Normal Circumflex (% Stenosis): Ostial (50%) OM1 (% Stenosis): Normal OM2 (% Stenosis): Mid (30%) RCA (% Stenosis): Proximal (40% proximal to stent. Proximal RCA stent 40% in- stent restenosis. Mid RCA stent 50-60% in-stent restenosis. Diffuse in-stent restenosis 20-30%. Distal RCA 30-40% and 50% and bifurcation of PDA and PL. ) R PDA (% Stenosis): Ostial (70-80%) R PL1 (% Stenosis): Normal Left Ventricular Angiography EF (%): n/a Diagnostic Physicians Name: Jimmy Martins MD Status: Elective Closure Device Percutaneous Entry Location: Radial Closure Device: Radial Band (following PCI) Recommendations: PCI without planned CABG
[2018-06-26] MEDS ORDERED: ADENOSINE IV SOLN 3 MG/ML 20 ML VIAL IV ONE (09:33)
[2018-06-26] MEDS ORDERED: CLOPIDOGREL BISULFATE 300 MG TAB ONE (10:18)
--- NOTE | 2018-06-26 10:29 | Cardiac Catheterization ---
Cardiac Cath Procedure Full Procedure Date June 26, 2018 Pre-Procedure Diagnosis Pre-Procedure Diagnosis: Angina and CAD AUC Score AUC Score: 7 Post-Procedure Diagnosis Post-Procedure Diagnosis: Severe CAD and Successful PCI Procedure(s) Performed Procedure(s) Performed: Coronary Angiography, Drug Eluting Stent and Fractional Flow [place] Physical Chemistry Teacher Maximiliano Leal MD Bus Driver(s) Katie Onofre Estimated Blood Loss Estimated Blood Loss: < 25 ml Medication(s) Medication(s): Clopidogrel, Fentanyl, Heparin, Lidocaine 1%, Nicardipine, Nitroglycerin and Versed Summary of Findings Indication: Angina Access: 6 Fr right radial artery Catheters: 5 Fr JL 3.5, 6 Fr AR-1 Findings: For full details of patient's coronary angiography please see cath report dictated by Dr. Martins. Briefly patient found to have moderate left main/LAD disease and ostial circumflex disease and moderate in-stent restenosis in mid RCA. In addition noted to have severe stenosis involving distal right RCA extending into right PDA. Decision was to assess left main and possible PCI of RCA. -- PCI -- Antithrombotic therapy: Heparin, clopidogrel Procedure: Left main cannulated with 5 [place] JL 3.5 guide Straight Onset FFR wire passed across left main into mid LAD IFR 0.91 FFR 0.84 Post procedure angiography revealed no coronary complications. Intervention deferred on left system. RCA cannulated with AR-1 guide Dry Box Tender 50 wire passed across distal RCA/PDA lesion placed in the distal PDA Distal RCA/PDA dilated with 2.5 compliant balloon Distal RCA into right PDA stented with 2.75 x 15 mm Jeramie drug-eluting stent Second military pilot 50 wire navigated into right PLB Stent postdilated with 3.0 NC balloon IC vasodilators administered for spasm Post procedure KARY 3 flow, stent well expanded with minimal residual stenosis and no apparent cardiac complications. Arterial Closure: TR Summary: 1. Moderate non-obstructive left main/ostial LAD disease (FFR 0.84). 2. Successful PCI of distal RCA into right PDA with single drug-eluting stent (2.75 x 15 mm Jeramie; postdilated with 3.0 NC). 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 Continue statin, and ASCVD risk factor modification Consult cardiac Rehab Hemodynamics Rest Ao:: 102/48/71 Final Ao: 95/47/69 LV: 114/15 Recommendations Recommendations: PCI without planned CABG Specimens Specimens: None Radiation Exposure (mGy) 3605 Contrast (mls) 145 Fluids (cc crystalloids) Fluids (cc crystalloids): 75 Drains Drains: none Anesthesia moderate Procedural Complication(s) None Disposition PCU ACC Data: Legal Intern Cardiac Status Clinical evaluation leading to the procedure CAD Presenation: Stable angina Anginal Classification: CCS III Heart Failure: No Cardiogenic Shock within 24 Hours: No Cardiac Arrest within 24 Hours: No Imaging Studies Past 6 Months: Yes Stress Studies Past 6 Months: No Diagnostic Physicians Name: Maximiliano Leal MD Status: Elective Closure Device Percutaneous Entry Location: Radial Closure Device: Radial Band Recommendations: PCI without planned CABG PCI Indication: Stable Angina Lesion Segment Name: distal RCA/PDA Culprit Artery: Yes Stenosis Prior to Rx (%): 80 Chronic Total Occlusion: No IVUS: No FFR: No Pre-Procedure KARY Flow: 3 Previously Treated Lesion: No Lesion Complexity: Non-High/Non-C Lesion Length (mm): 12 Thrombus Present: No Bifurcation Lesion: Yes Guidewire Across Lesion: Stenosis Post-Procedure (%): 0 Post-Procedure KARY Flow: 3 Devices(s) Deployed: Yes Yes Intraprocedure Events Significant Disection: No Perforation: No
--- NOTE | 2018-06-26 10:33 | Post Anesthesia Assessment ---
Date of Service June 26, 2018 Post Sedation Assessment Vital Signs Temp Pulse Resp BP Pulse Ox 06/26/18 06:52 36.7 C 80 16 96/59 L 98 06/26/18 03:20 36.5 C 80 16 104/78 95 06/25/18 22:59 36.5 C 85 18 109/61 96 06/25/18 20:53 111 H 114/75 06/25/18 19:23 36.5 C 80 18 100/66 95 06/25/18 16:00 36.4 C L 77 17 112/75 95 06/25/18 10:41 36.9 C 95 H 17 125/73 94 Recovery Score Activity: Moves 4 extremities Respiration: Deep Breath/Cough Circulation: +/-20% PreAnes Value Consciousness: Fully Awake Oxygen Saturation: O2 needed for >90% Discharge Sedation Level of Care: Fast Track Phase II Post Sedation Plan On clinical assessment, the patient appears to have tolerated the sedation without complications. Patient is recovering as anticipated. Patient will continue to be monitored by nursing and may be discharged when sedation discharge criteria are met per below protocol. Upon Completions of procedure and additional 15 minutes continue every 5 minute vital signs and the P.A.R. score; then discharge to a Phase I or Fast Track to Phase II per the following guidelines: * Discharge Patient to appropriate Phase II area if PAR is 8 or greater or return to pre- procedure baseline. The post - procedure orders will be as directed. * If PAR score is less than 8 or not return to pre-procedure baseline then patient will follow Phase I monitoring till PAR is reached for Phase II. The Phase I may be done in procedure room or may call to secure a Phase I area. * If naloxone or flumazenil are used for reversal, hold in Phase I for continued monitoring from when last reversal dose was given for a minimum of 60 minutes or longer pending the nurse and/or physician discretion of patient condition before discharge to Phase II. Please call the Sedation Physician to re-evaluate and complete post-note for discharge to Phase II area. Do NOT discharge from procedure sedation or Phase 1 until post- sedation evaluation note is complete by procedure /sedation MD Sedation Discharge Instructions to be given to the patient at discharge to home.
[2018-06-26] MEDS ORDERED: ONDANSETRON INJ 2 MG/ML 2 ML VIAL IV PRN (10:34)
[2018-06-26] MEDS: LOSARTAN POTASSIUM 25 MG TAB PO SCH (10:42)
[2018-06-26] MEDS: ISOSORBIDE MONO EXTENDED REL 30 MG TABCR PO SCH (10:44)
[2018-06-26] MEDS: MULTIVITAMIN TAB PO SCH (10:44)
[2018-06-26] MEDS: METOPROLOL SUCC 50MG EXT REL TAB PO SCH ×2 (10:44→20:57)
[2018-06-26] MEDS: FUROSEMIDE 40 MG TAB PO SCH (10:44)
[2018-06-26] MEDS: ASPIRIN 81 MG ECTAB PO SCH (10:44)
[2018-06-26] MEDS ORDERED: SODIUM CHLORIDE 0.9% 500 ML IV SCH (10:45)
--- NOTE | 2018-06-26 16:48 | Hospitalist Progress Note ---
Date of Service June 26, 2018 Assessment & Plan (1) Unstable angina: - -Continue aspirin, statin, metoprolol, will be begin Eliquis at time of discharge patient placed on Plavix will discuss with cardiology if aspirin and Plavix are both needed with Eliquis for this Plavix and Eliquis -Nitroglycerin as needed for pain Troponin 0.015->0.016-> 0.018 -Per cardiology intracoronary stent placed to the right coronary artery on 06/25 (2) KISER (dyspnea on exertion): Likely associated with his unstable angina, no signs of rapid A. fib, will ambulate needed prior to discharge to determine if his symptoms are resolved CXR with out signs of fluid overload symptoms are not present at rest (3) CAD (coronary artery disease): Status post HI with 100% occluded RCA in 01/2010 with one stent placed- went for repeat cath 2 days later during that same admission for dissection of the RCA and had 3 more stents placed at that time -Recently was discontinued from his Effient when he was started on Eliquis last week for atrial fibrillation -Continue aspirin, high intensity statin, metoprolol with discussion whether aspirin Plavix and Eliquis are needed (4) A-fib: New in onset as of 1 week ago, rate controlled at rest here with increased dose of metoprolol to 100 mg p.o. twice daily last week -Monitor on telemetry -Holding Eliquis and -Continue p.o. Toprol-XL 100 mg twice daily (5) HTN (hypertension), benign: Controlled -Continue metoprolol, losartan, Lasix (6) Chronic systolic CHF (congestive heart failure): HFrEF LVEF 40-45% and imaging of the heart 2 years ago Had some lower extremity edema 1 month ago along with weight gain that resolved with an increase in his Lasix dose when seen by cardiology -Continue Lasix 40 mg daily -Continue losartan, metoprolol heart failure clinic engagement (7) Ischemic cardiomyopathy: As above and "CHF" (8) Hypothyroidism: TSH normal at 2.5 in 12/2017 -Continue home dose of levothyroxine 125 mcg once daily (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 Was treated with 6 months of Coumadin at that time and has had no recurrence (10) Hyperlipidemia: Continue statin (11) DVT prophylaxis: Eliquis is restarted Disposition-admit to PCU/telemetry Full code Subjective Patient patient feels well after having a cardiac stent placed in his right coronary artery. His right wrist access site is without discomfort he has good distal sensation and and capillary refill. If all goes well he will be observed overnight he will ambulate in the unit to determine if his dyspnea is improved and likely be discharged on 517 Review of Systems Review of Systems: ROS: well nourished well developed. No double vision blurry vision No problems with speech or swallowing No palpitations, chest pain or pressure No Wheezing or breathing issues No abdominal pain nausea vomiting diarrhea changes in appetite or weight No burning urine urine frequency or changes in color No focal joint pain or muscle pain No skin rashes or oral lesions No unusual bruising or bleeding No focused back pain or numbness or loss of strength No changes in memory or confusion Physical Exam Physical Exam: The patient appeared well nourished and normally developed. Vital signs as documented. Head exam is unremarkable. normocephalic, atraumatic Neck is without jugular venous distension, thyromegaly, or lymphademopathy Lungs are clear to auscultation and percussion. Cardiac exam reveals Rhythm is regular. First and second heart sounds normal. Abdominal exam reveals normal bowel sounds, no masses, no organomegaly Extremities as mentioned his right wrist was inspected at the time I saw him he had a pressure cuff in place site looks clear and without bleeding and he had good distal sensation capillary refill to his fingers Neurologic exam is A&Ox3, no focal deficits, strength is equal bilateral Psychologically seems neither anxious or depressed Skin is warm Dry Results & Data Vital Signs (Past 12 Hours) Vital Signs Temp Pulse Pulse Resp BP BP BP 06/26/18 16:00 36.7 C 93 H 18 122/71 06/26/18 14:31 90 7 L 109/65 06/26/18 14:30 100 H 9 L 06/26/18 14:20 100 H 10 L 06/26/18 14:10 98 H 12 06/26/18 14:01 93 H 9 L 130/71 06/26/18 14:00 98 H 19 06/26/18 13:50 94 H 17 06/26/18 13:40 99 H 14 06/26/18 13:31 87 13 137/72 06/26/18 13:30 93 H 29 H 06/26/18 13:20 88 9 L 06/26/18 13:10 96 H 5 L 06/26/18 13:01 97 H 8 L 135/79 06/26/18 13:00 97 H 7 L 06/26/18 12:50 119 H 7 L 06/26/18 12:40 112 H 17 06/26/18 12:31 98 H 1 L 122/58 L 06/26/18 12:30 100 H 26 H 06/26/18 12:20 96 H 1 L 06/26/18 12:16 106 H 7 L 141/96 H 06/26/18 12:10 113 H 17 06/26/18 12:01 106 H 7 L 123/83 06/26/18 12:00 120 H 14 06/26/18 11:50 94 H 16 06/26/18 11:46 103 H 16 114/66 06/26/18 11:40 97 H 15 06/26/18 11:31 92 H 4 L 122/71 06/26/18 11:30 97 H 5 L 06/26/18 11:25 97 H 2 L 115/53 L 06/26/18 11:24 78 18 115/53 L 06/26/18 11:20 89 1 L 06/26/18 11:16 90 3 L 115/53 L 06/26/18 11:10 89 19 06/26/18 11:01 91 H 17 125/69 06/26/18 11:00 99 H 17 06/26/18 10:50 101 H 15 06/26/18 10:46 79 4 L 121/86 06/26/18 10:40 88 18 06/26/18 10:39 100 H 12 142/74 H 06/26/18 10:37 06/26/18 10:34 36.4 C L 81 18 133/82 06/26/18 06:52 36.7 C 80 16 96/59 L Pulse Ox 06/26/18 16:00 96 06/26/18 14:31 95 06/26/18 14:30 95 06/26/18 14:20 96 06/26/18 14:10 96 06/26/18 14:01 95 06/26/18 14:00 95 06/26/18 13:50 95 05/17/19 13:40 96 05/17/19 13:31 95 05/17/19 13:30 96 05/17/19 13:20 96 05/17/19 13:10 95 05/17/19 13:01 95 05/17/19 13:00 95 05/1719 12:50 94 05/17/19 12:40 96 05/1719 12:31 95 05/17/19 12:30 94 05/1719 12:20 95 051719 12:16 95 05/1719 12:10 95 05/1719 12:01 96 0519 12:00 95 05/1719 11:50 96 05/17/19 11:46 96 05/19 11:40 96 05/1719 11:31 94 05/17/19 11:30 95 05/17/19 11:25 93 05/17/19 11:24 94 05/17/19 11:20 94 05/17/19 11:16 95 051719 11:10 95 05/17/19 11:01 94 05/17/19 11:00 95 05/17/19 10:50 94 05/17/19 10:46 93 05/17/19 10:40 94 05/17/19 10:39 93 05/17/19 10:37 94 05/17/19 10:34 95 05/17/19 06:52 98
--- NOTE | 2018-06-26 17:45 | Cardiology Progress Note ---
Date of Service June 26, 2018 Assessment & Plan (1) Unstable angina: No further angina. Continue medical therapy with beta-rony, high- intensity statin therapy, anti-platelet therapy. Can continue nitrate if needed. Status post PDA PCI with drug-eluting stent earlier today. Tolerated procedure well. (2) CAD (coronary artery disease): Has had PCI x4 to RCA in 2009. He is now status post PDA 2.75 x 15 mm hammad drug-eluting stent on 06/26/2018. Continue Plavix, aspirin, Eliquis for 1 week and then interventional Cardiology has recommended discontinuation of aspirin while continuing Plavix 75 mg daily for 6 months with Eliquis. Some form of anti-platelet therapy should be continued indefinitely. Continue other medical therapy. (3) A-fib: Heart rate is not adequately controlled. Will start digoxin 125 mcg daily. Continue beta-rony. Continue anticoagulation for stroke risk reduction. (4) KISER (dyspnea on exertion): Could be due to ischemic heart disease, atrial fibrillation, or heart failure. LVEDP was not significantly elevated and therefore symptoms likely related to ischemic heart disease or atrial fibrillation rapid ventricular res ponse. Hopefully symptom has improved following PCI. Also adjusting rate control medications as above. (5) Ischemic cardiomyopathy: Moderately reduced LV systolic function. Continue metoprolol succinate. Continue ARB. Can consider Entresto as an outpatient. Volume status appears appropriate and LVEDP not significantly elevated. (6) Chronic systolic (congestive) heart failure: Filling pressures were not significantly elevated on cardiac catheterization. Continue home dose of diuretic. Low-sodium diet. Strict I&Os. Daily weights. Disposition: I will be away from the hospital tomorrow. If no events overnight, can be discharged tomorrow from a cardiology standpoint with new anti-platelet therapy as outlined, and also the addition of digoxin. He already has follow-up scheduled later this month with a cardiology office. Please call on-call survey field technician with any questions or concerns. Subjective No further chest discomfort. He underwent cardiac catheterization earlier today and was found to have severe PDA stenosis, prompting 2.75 x 15 mm drug-eluting stent. He tolerated the procedure well. He also underwent FFR of left main coronary artery which was not found to be moderate and nonobstructive. He denies shortness of breath, syncope, near-syncope, palpitations, or bleeding. He has no complaints from his right radial cath site. Review of systems: As above. His is present at the bedside. Questions were asked by he and his and were answered to the best of my ability. Physical Exam Physical Exam: Gen.: No acute distress. Alert and oriented. HEENT: Anicteric sclera. Neck: No significant JVD. Cardiac: Irregularly irregular. Normal S1-S2. No murmurs, rubs, or gallops. Pulmonary: Clear to auscultation bilaterally without wheezes, rales, or rhonchi. Abdomen: Soft, nontender, nondistended, with normoactive bowel sounds. No bruits noted. Extremities: 1+ right radial pulse. Right radial cath site is clean, dry, and intact without erythema or discharge. Trace bilateral lower extremity edema. No cyanosis. Psychiatric: Affect appears appropriate. Results & Data Vital Signs (Past 12 Hours) Vital Signs Temp Pulse Pulse Resp BP BP BP 06/26/18 16:00 36.7 C 93 H 18 122/71 06/26/18 14:31 90 7 L 109/65 06/26/18 14:30 100 H 9 L 06/26/18 14:20 100 H 10 L 06/26/18 14:10 98 H 12 06/26/18 14:01 93 H 9 L 130/71 06/26/18 14:00 98 H 19 06/26/18 13:50 94 H 17 06/26/18 13:40 99 H 14 06/26/18 13:31 87 13 137/72 06/26/18 13:30 93 H 29 H 06/26/18 13:20 88 9 L 06/26/18 13:10 96 H 5 L 06/26/18 13:01 97 H 8 L 135/79 06/26/18 13:00 97 H 7 L 06/26/18 12:50 119 H 7 L 06/26/18 12:40 112 H 17 06/26/18 12:31 98 H 1 L 122/58 L 06/26/18 12:30 100 H 26 H 06/26/18 12:20 96 H 1 L 06/26/18 12:16 106 H 7 L 141/96 H 06/26/18 12:10 113 H 17 06/26/18 12:01 106 H 7 L 123/83 06/26/18 12:00 120 H 14 06/26/18 11:50 94 H 16 06/26/18 11:46 103 H 16 114/66 06/26/18 11:40 97 H 15 06/26/18 11:31 92 H 4 L 122/71 06/26/18 11:30 97 H 5 L 06/26/18 11:25 97 H 2 L 115/53 L 06/26/18 11:24 78 18 115/53 L 06/26/18 11:20 89 1 L 06/26/18 11:16 90 3 L 115/53 L 06/26/18 11:10 89 19 06/26/18 11:01 91 H 17 125/69 06/26/18 11:00 99 H 17 06/26/18 10:50 101 H 15 06/26/18 10:46 79 4 L 121/86 06/26/18 10:40 88 18 06/26/18 10:39 100 H 12 142/74 H 06/26/18 10:37 06/26/18 10:34 36.4 C L 81 18 133/82 06/26/18 06:52 36.7 C 80 16 96/59 L Pulse Ox 06/26/18 16:00 96 06/26/18 14:31 95 06/26/18 14:30 95 06/26/18 14:20 96 06/26/18 14:10 96 06/26/18 14:01 95 06/26/18 14:00 95 06/26/18 13:50 95 06/26/18 13:40 96 06/26/18 13:31 95 06/26/18 13:30 96 06/26/18 13:20 96 06/26/18 13:10 95 06/26/18 13:01 95 06/26/18 13:00 95 06/26/18 12:50 94 06/26/18 12:40 96 06/26/18 12:31 95 06/26/18 12:30 94 06/26/18 12:20 95 06/26/18 12:16 95 06/26/18 12:10 95 06/26/18 12:01 96 06/26/18 12:00 95 06/26/18 11:50 96 06/26/18 11:46 96 06/26/18 11:40 96 06/26/18 11:31 94 06/26/18 11:30 95 06/26/18 11:25 93 06/26/18 11:24 94 06/26/18 11:20 94 06/26/18 11:16 95 06/26/18 11:10 95 06/26/18 11:01 94 06/26/18 11:00 95 06/26/18 10:50 94 06/26/18 10:46 93 06/26/18 10:40 94 06/26/18 10:39 93 06/26/18 10:37 94 06/26/18 10:34 95 06/26/18 06:52 98 Laboratory Results Laboratory Results - last 24 hr 06/26/18 06/26/18 06/26/18 05:34 08:20 09:56 APTT 71.2 H* PTT Ratio 2.6 Activ Coag Time Kaolin 153 H 197 H Diagnostic Findings Cardiac catheterization 06/26/2018: Coronary angiography: 1. Left main coronary artery: The LMCA is medium caliber and appears smaller than proximal LAD. The waveform was ventricularized with the catheter was engaged within the LMCA, as the catheter was positioned along the vascular wall. No focal stenosis visualized. 2. Left anterior descending: The LAD is a large caliber vessel that extends near the apex. Mid LAD 30-40% at bifurcation of D2. There is a large high D1 without significant CAD. KARY 3 flow. 3. Circumflex: Large caliber vessel. Ostial circumflex 50%. Medium caliber OM1 without significant CAD. Large OM2 mid 30%. 4. Right coronary artery: The RCA is large and dominant. RCA stents extending proximally to distal vessel. Proximal RCA 40%, proximal to stent margin. There is diffuse 20-30% in stent restenosis throughout the stented RCA territory. Proximal RCA stent focal 40% stenosis. Mid RCA stent 50-60% in stent restenosis. Distal RCA 30-40% followed by 50% at the bifurcation of PDA and PL (distal to distal RCA stent margin). Large PDA with ostial 70-80% stenosis with KARY [address] branches. Left heart catheterization: 1. Left ventriculography was not performed. 2. Borderline LVEDP; 15mmHg. 3. No significant aortic stenosis. Telemetry personally reviewed: Atrial fibrillation with mild rapid ventricular response at times. Medications Administered Current Inpatient Medications Acetaminophen (Tylenol) 1,000 mg PO Q8H PRN PRN Reason: Pain Stop: 07/24/18 17:23 Apixaban (Eliquis) 5 mg PO BID [facility] Stop: 07/27/18 08:59 Aspirin (Ecotrin Ectab) 81 mg PO DAILY [facility] Stop: 07/25/18 08:59 Last Admin: 06/26/18 10:44 Dose: Not Given Documented by: Atorvastatin Calcium (Lipitor) 40 mg PO HS [facility] Stop: 07/24/18 20:59 Last Admin: 06/25/18 20:53 Dose: 40 mg Documented by: Clopidogrel Bisulfate (Plavix) 75 mg PO QAM [facility] Stop: 07/27/18 08:59 Furosemide (Lasix) 40 mg PO DAILY [facility] Stop: 07/25/18 08:59 Last Admin: 06/26/18 10:44 Dose: 40 mg Documented by: Isosorbide Mononitrate (Imdur Extended Rel) 30 mg PO QAM [facility] Stop: 07/25/18 11:14 Last Admin: 06/26/18 10:44 Dose: 30 mg Documented by: Levothyroxine Sodium (Synthroid) 125 mcg PO DAILYBB [facility] Stop: 07/25/18 06:29 Last Admin: 06/26/18 06:13 Dose: 125 mcg Documented by: Losartan Potassium (Cozaar) 25 mg PO DAILY [facility] Stop: 07/25/18 08:59 Last Admin: 06/26/18 10:42 Dose: Not Given Documented by: Metoprolol Succinate (Toprol Xl) 100 mg PO BID [facility] Stop: 07/24/18 20:59 Last Admin: 06/26/18 10:44 Dose: 100 mg Documented by: Morphine Sulfate (Morphine Sulfate) 2 mg IV Q30M PRN PRN Reason: Chest Pain Stop: 07/08/18 17:23 Multivitamins (Multivitamin Tab) 1 tab PO DAILY [facility] Stop: 07/25/18 08:59 Last Admin: 06/26/18 10:44 Dose: 1 tab Documented by: Nitroglycerin (Nitrostat) 0.4 mg SL UD PRN PRN Reason: Chest Pain Stop: 07/24/18 17:23 Ondansetron HCl (Zofran) 4 mg IV Q6H PRN PRN Reason: Nausea And Vomiting Stop: 07/26/18 10:33 Polyethylene Glycol (Miralax Powder Packet) 17 gm PO DAILY PRN PRN Reason: Constipation Stop: 07/24/18 17:23
[2018-06-26] MEDS ORDERED: DIGOXIN 0.125 MG TAB PO SCH (18:00)
[2018-06-26] MEDS: ATORVASTATIN 40 MG TAB PO SCH (20:57)
[2018-06-27] MEDS: LEVOTHYROXINE SODIUM 125 MCG TABLET PO SCH (03:57)
[2018-06-27 06:13] LABS: Partial Thromboplastin Ratio 0.9; Partial Thromboplastin Time 25.3 Seconds (21.0-31.0)
[2018-06-27] MEDS: FUROSEMIDE 40 MG TAB PO SCH (08:59)
[2018-06-27] MEDS: METOPROLOL SUCC 50MG EXT REL TAB PO SCH (08:59)
[2018-06-27] MEDS: ASPIRIN 81 MG ECTAB PO SCH (09:00)
[2018-06-27] MEDS ORDERED: APIXABAN 5 MG TABLET PO SCH (09:00)
[2018-06-27] MEDS: ISOSORBIDE MONO EXTENDED REL 30 MG TABCR PO SCH (09:00)
[2018-06-27] MEDS: MULTIVITAMIN TAB PO SCH (09:00)
[2018-06-27] MEDS: LOSARTAN POTASSIUM 25 MG TAB PO SCH (09:00)
[2018-06-27] MEDS ORDERED: CLOPIDOGREL BISULFATE 75 MG TAB PO SCH (09:00)
[2018-06-27] MEDS ORDERED: DIGOXIN 250 MCG in SYRINGE 9 ML IV STA (09:52)
--- NOTE | 2018-06-27 15:41 | Discharge Summary ---
Date of Service June 27, 2018 Admission HPI Per Admitting Provider This patient is a 68-year-old male with a history of CAD status post MS with PCI x4 to the RCA in 01/2010, ischemic cardiomyopathy and chronic systolic CHF with EF 40-45%, HTN, hypothyroidism, HL, obesity, Hodgkin's lymphoma status post XRT, history of left internal jugular brachial DVT, and recent diagnosis of atrial fibrillation 1 week ago. He presents to the ER with exertional chest pressure that is 3 out of 10 in severity, radiates to the bilateral shoulders, is associated with shortness of breath, but not with diaphoresis or nausea. The chest pressure does go away with rest. This is been going on for the last 3 days. He denies any recent weight gain or lower extremity edema since he doubled up on his diuretics a month ago and had resolution of his lower extremity edema. He was seen in the cardiology office approximately 1 week ago with dyspnea and was found to have new onset atrial fibrillation with rates in the low 100s. At that time, his Toprol-XL was doubled to 100 mg twice daily and he was started on Eliquis 5 mg p.o. twice daily. He was not having any chest pain or pressure at that time. In the ER, his initial troponin was negative, he was in atrial fibrillation that was rate controlled, and his ECG showed atrial fibrillation with a rate of 96 with age-indeterminate inferior infarct. Previous ECG in the outpatient chart from 12/2016 also shows an inferior infarct pattern. He was symptom-free at rest at the time of my evaluation. He actually had an echocardiogram performed as an outpatient yesterday, but the results were not available yet in his outpatient record. He will be admitted for unstable angina and for further work-up. Principal Diagnosis unstable angina with stent to RCA Discharge Exam Constitutional well developed and average body habitus Eyes no conjunctival abnormality and no scleral abnormality Neck normal visual inspection and trachea midline Respiratory normal respiratory effort; no respiratory distress Auscultation: lungs clear to auscultation bilaterally Cardiovascular RRR, no murmur, no edema Gastrointestinal (Abdomen) normal bowel sounds, soft, nontender, no hepatosplenomegaly Musculoskeletal no cyanosis or clubbing, extremities motor strength 5/5 Discharge Data Allergies Allergy/AdvReac Type Severity Reaction Status Date / Time No Known Allergies Allergy Unverified 06/24/18 14:27 Consultations 06/24/18 15:18 ED Decision to Admit Stat 06/24/18 17:24 Consult Cardiology Routine 06/26/18 10:35 Consult Cardiac Rehabilitation Routine Procedures Performed Operation Date: 06/26/18 08:00 Actual Procedures p Cath, Left with Cors and Vent - Jimmy Martins MD s Cineradiography w/Routine Exam - Jimmy Martins MD s Fraction Flow Stark SGL Ves - Cj Leal MD s Drug Eluting Stent SGl Vessel - Cj Leal MD Ordered Studies 06/26/18 06:48 CL Cath Imgs for PACS use only Routine Hospital Course (1) Unstable angina: - -Continue aspirin, statin, metoprolol, will be begin Eliquis at time of discharge patient placed on Plavix overlap one week with aspirin -Nitroglycerin as needed for pain negative trend -Per cardiology intracoronary stent placed to the right coronary artery on 06/25 (2) KISER (dyspnea on exertion): Likely associated with his unstable angina, CXR with out signs of fluid overload symptoms are not present with exertion after stent (3) CAD (coronary artery disease): Status post MS with 100% occluded RCA in 01/2010 with one stent placed- went for repeat cath 2 days later during that same admission for dissection of the RCA and had 3 more stents placed at that time Eliquis for atrial fibrillation -Continue aspirin for one week, plavix overlap and there after, high intensity statin, metoprolol with discussion whether aspirin Plavix and Eliquis are needed (4) A-fib: New in onset as of 1 week ago, rate controlled at rest here with increased dose of metoprolol to 100 mg p.o. twice daily cardiology added digoxin to regime of toprol and amiodarone given additional iv digoxin 0.25 [facility] rates in the 90's -Holding Eliquis and -Continue p.o. Toprol-XL 100 mg twice daily (5) HTN (hypertension), benign: metoprolol, losartan, Lasix (6) Chronic systolic CHF (congestive heart failure): HFrEF LVEF 40-45% and imaging of the heart 2 years ago Had some lower extremity edema 1 month ago along with weight gain that resolved with an increase in his Lasix dose when seen by cardiology -Continue Lasix 40 mg daily -Continue losartan, metoprolol heart failure clinic engagement (7) Ischemic cardiomyopathy: As above and "CHF" (8) Hypothyroidism: TSH normal at 2.5 in 12/2017 -Continue home dose of levothyroxine 125 mcg once daily (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 Was treated with 6 months of Coumadin at that time and has had no recurrence (10) Hyperlipidemia: Continue statin (11) DVT prophylaxis: Eliquis is restarted Full code Total Time Total Time Spent Total Time Spent (In Minutes): greater than 30 minutes were required to prepare discharge Discharge Plan Discharge Items Patient Disposition: Home - Self-Care Reason For Visit: UNSTABLE ANGINA Discharge Diagnosis: unstable angina s/p stent to right coronary artery atrial fibrillation with addition of digoxin Discharge Goals: Decrease discomfort and Diagnostic testing Activity: Resume your previous activity Non-emergency contact: Primary Care Provider Call non-emergency contact if: you have any medication questions Follow-up/Referrals: Chhaya Yanez MD [Primary Care Provider] - Diet: Heart Healthy Addtl Provider Instructions: ACTIVITY RECOMMENDATIONS: Excess manipulation of the wrist should be avoided for the next 24-48 hours. * No lifting over 2 pounds (approximately a 1/2 gallon of milk) with the utilized arm for 24 hours. * No strenuous activity such as bowling or tennis for 3 days. * Keep the site of the procedure covered with a bandage for 24 hours. *You may shower the day after the procedure. Do not take a tub bath or submerge the puncture site in water for the next 3 days. *Do not operate any motorized equipment for 3 days. SPECIAL CARE INSTRUCTIONS: The site may be slightly bruised and sore following your procedure. Should any of the following occur, contact the Dr. who performed your procedure. 1. Redness/inflammation, swelling, chills, or fever, or colored drainage at procedure site within 3-7 days after your procedure. 2. Coldness, discoloration, ongoing numbness, severe pain, or swelling. Expect mild tingling of hand and tenderness at the puncture site for up to three days. If this persists beyond three days, or other symptoms develop, notify the Dr. who performed your procedure. BLEEDING: If the procedure site on your wrist begins to bleed, do not panic 1. Place 1 or 2 fingers firmly just slightly above the insertion site to stop the bleeding. You may be able to feel your pulse as you hold pressure. 2. Lift your finger after 5 minutes to see if the bleeding has stopped. 3. Once the bleeding has stopped, gently wipe the wrist area clean with a bandage. * If the bleeding from your wrist does not stop after 10 minutes, or if there is a large amount of bleeding or spurting, call 911 ([address] drive yourself to the hospital). SKIN IRRITATION: * You may experience some redness and/or swelling in the area where radiation was administered. If any skin irritation occurs, please contact your family physician. FOLLOW UP VISIT: Keep any scheduled doctor appointments. Prescriptions: New isosorbide mononitrate 30 mg Tablet Extended Release 24 Hr 30 mg PO QAM Qty: 30 RF: 5 clopidogrel 75 mg Tablet 75 mg PO QAM Qty: 90 RF: 3 digoxin 125 mcg Tablet 0.125 mg PO DAILY@1600 Qty: 30 RF: 5 Continued multivitamin Tablet 1 tab PO DAILY RF: 0 furosemide 40 mg tablet 40 mg PO DAILY RF: 0 atorvastatin 40 mg tablet 40 mg PO HS RF: 0 metoprolol succinate 100 mg tablet extended release 24 hr 100 mg PO BID RF: 0 acetaminophen 500 mg Tablet 1,000 mg PO Q8H PRN (Reason: Pain) RF: 0 levothyroxine 125 mcg Tablet 125 mcg PO DAILY RF: 0 losartan 25 mg tablet 25 mg PO DAILY RF: 0 nitroglycerin 0.4 mg tablet, sublingual 0.4 mg sublingual DIRECTED RF: 0 Eliquis 5 mg tablet 5 mg PO BID RF: 0 aspirin [Aspirin Low Dose] 81 mg Tablet,Delayed Release (Dr/Ec) 81 mg PO DAILY Qty: 0 RF: 0 Stand-Alone Forms: Call Back Authorization, [facility]/Other Patient Handouts: Clopidogrel Bisulfate Oral tablet, Isosorbide Mononitrate Oral tablet extended-release, Digoxin Discharge Orders: Discharge Order (Routine); Ordered 06/27/18 Ordered By: Karan Perez Admission Data Admit Date/Time: 06/24/18 16:16 Attending Provider: Karan Perez Admit Provider: Iveth Chao Primary Care Provider: Chhaya Yanez Other Providers: Iveth Chao Alexander W. Service: Telemetry Other Interventions: Discharge Summary Assessment (RN) Last Done: 06/27/18 12:31 DC Date/Time DO NOT enter until pt leaves facility: 06/27/18 13:16
== END 2018-06-27 13:16 | disposition home or self-care (01) | DRG 247 ==
LOC: ED 12:58 → 2E 16:16 → SUATTDRO 16:16 → 2E 16:58